=== PATIENT | male | born 1990 | race American Indian/Alaskan Native ===

== ENCOUNTER 2020-06-06 20:26 | Emergency (ER) | payer SELFPAY ==
[2020-06-06 22:06] VITALS: BP 142/94
--- NOTE | 2020-06-06 23:05 | XRay Report ---
CHEST 2 VIEWS INDICATION / CLINICAL INFORMATION: FEVER AND COUGH. COMPARISON: None available. FINDINGS: SUPPORT DEVICES: None. HEART / MEDIASTINUM: No significant abnormality. LUNGS / PLEURA: There is some minimal parenchymal disease in the left lung base. The remainder of the lungs are clear. No pleural effusion. No pneumothorax. ADDITIONAL FINDINGS: No significant additional findings. IMPRESSION: 1. Probable left basilar pneumonia. Signer Name: Angella Padilla MD Signed: 06/06/2020 11:00 PM Workstation Name: [id number]
== END 2020-06-07 00:35 | disposition left against medical advice (07) ==
LOC: ED 20:26
DX: R50.9 Fever, unspecified (principal); Z53.21 Procedure and treatment not carried out due to patient leaving prior to being seen by health care provider
CPT/HCPCS: 71046